=== PATIENT | female | born 1965 | race Caucasian/White ===

== ENCOUNTER 2016-09-19 10:56 | Day surgery (SDC) | payer BC, OTHER ==
[2016-09-19] VITALS (8 sets, daily range): BP systolic 108–134; BP diastolic 57–80; PULSE 63–81; TEMP 97.8–98.2
[~2016-09-19] VITALS: Ht 172.7 cm; Wt 87.7 kg
[2016-09-19] MEDS ORDERED: PROVERA 10MG10 MG PO (11:44)
[2016-09-19] MEDS ORDERED: ADVIL200 MG PO (11:45)
[2016-09-19] MEDS ORDERED: MEVACOR 20M20 MG/TAB PO (11:45)
[2016-09-19] MEDS ORDERED: MOTRIN 800800 MG/TAB PO (14:03)
[2016-09-19] MEDS ORDERED: PERCOCET 325 MG1 TA2 PO (14:03)
== END 2016-09-19 19:20 | disposition home or self-care (01) ==
LOC: SDCO 10:56
DX: D25.2 Subserosal leiomyoma of uterus (principal); N83.8 Other noninflammatory disorders of ovary, fallopian tube and broad ligament; N83.02 Follicular cyst of left ovary; N92.0 Excessive and frequent menstruation with regular cycle
CPT/HCPCS: A4315; C1713; E0710; J0690; J1100; J1885; J2250; J2274; J2405; J2704; J2710; J3010; J7120